=== PATIENT | male | born 1945 | race Caucasian/White ===

== ENCOUNTER 2020-10-07 17:00 | Emergency (ER) | payer MEDICARE, SELFPAY ==
[2020-10-07 17:32] VITALS: BP 179/81; BP 185/94; PULSE 129; PULSE 130; RESP 21; TEMP 38.5; O2SAT 94; O2SAT 95; BMI 29.0
--- NOTE | 2020-10-07 17:37 | ECG_ITS ---
Test Reason : SYNCOPE Blood Pressure : / mmHG Vent. Rate : 121 BPM Atrial Rate : 121 BPM P-R Int : 156 ms QRS Dur : 088 ms QT Int : 320 ms P-R-T Axes : 084 -10 064 degrees QTc Int : 454 ms Sinus tachycardia Inferior infarct , age undetermined Abnormal ECG No previous ECGs available Referred By: Yadira Soriano Electronically Signed By:ZAINAB QUINTANILLA
--- NOTE | 2020-10-07 17:37 | XR_ITS ---
EXAMINATION: XR CHEST CLINICAL INFORMATION: Cough. COMPARISON: None TECHNIQUE: Frontal view of the chest was obtained. FINDINGS: No significant abnormality is noted involving the heart, lungs, mediastinum, bony thorax or soft tissues. XR/XR chest 1V IMPRESSION: Unremarkable chest examination.
[2020-10-07 18:00] VITALS: BP 144/68; PULSE 108; RESP 18; TEMP 37.3
[2020-10-07] MEDS: Acetaminophen 325 MG TABLET 975 MG PO (18:15)
--- NOTE | 2020-10-07 18:15 | ED_ITS ---
HPI - General Adult General Chief complaint: General Medical Stated complaint: Weakness Time Seen by Provider: 10/07/20 17:35 Source: patient and EMS Mode of arrival: EMS Limitations: no limitations History of Present Illness HPI narrative: 75 y/o male with history of CAD s/p CABG in February 2020, PVD s/p RLE stent at [facility] last week who presents to the ED with acute onset of profuse diarrhea and fecal incontinence that started this afternoon. He states he was walking downstairs when he started to lose control of his bowels and felt instantly weak all over. When he got to the bottom of the stairs he collapsed into a chair and hit his left shoulder. He did not his head head or lose consciousness. He called EMS because he was too weak to get up. He was found covered in liquid stool. He reports he was recently around his son who was later found to be COVID positive. He denies nausea, vomiting, abdominal pain, fever, chills, SOB or chest pain. He admits to a chronic cough but it is unchanged from his baseline. MD complaint: diarrhea Onset (ago): hour(s) (1) Location: abdomen Radiation: non-radiation Severity: moderate Relieving factors: none Exacerbating factors: none Associated symptoms: fever/chills, malaise and weakness Treatments prior to arrival: none Related Data Allergies Allergy/AdvReac Type Severity Reaction Status Date / Time Unable to Assess Allergy Verified 10/07/20 17:37 Review of Systems Review of Systems: Constitutional: No Fever, No Chills ENT/Mouth: No sore throat, No Rhinorrhea, No Swallowing Difficulty Cardiovascular: No Chest Pain, No SOB, No Orthopnea, No Edema Respiratory: + Cough, No Sputum, No Wheezing, No dyspnea Gastrointestinal: No Nausea, No Vomiting, + Diarrhea, No abdominal Pain Genitourinary: No Dysuria, No Urinary Frequency, No Hematuria Musculoskeletal: No joint pain, No Myalgias Skin: No Skin Lesions, No rash Neuro: No Weakness, No Numbness, No Dizziness, + Headache Psych: No Anxiety/Panic, No Depression Heme/Lymph: + Bruising, No Lymphadenopathy Endocrine: No Polyuria, No Polydipsia PMFSH Past Medical History Attestation statement: The following information was validated with the patient. Medical History (Updated 10/07/20 @ 20:55 by HARITHA Soto) CAD (coronary artery disease) PVD (peripheral vascular disease) Surgical History (Updated 10/07/20 @ 18:21 by HARITHA Soto) S/P CABG (coronary artery bypass graft) Social History Social History Advance Directives: No Advance Directives Information Provided: Yes Physical Exam Vital Signs: Vital Signs: Last Vital Signs Temp 101.3 F H 10/07/20 17:32 Pulse 129 H 10/07/20 17:32 Resp 21 H 10/07/20 17:32 BP 179/81 H 10/07/20 17:32 Pulse Ox 94 10/07/20 17:32 Body Mass Index 29.0 Appearance: Alert. Oriented X3. No acute distress. Eyes: Pupils equal, round and reactive to light. ENT: Pharynx normal. Neck: Normal inspection. Neck supple. CVS: tachycardic. Pulses normal. well healed anterior chest wall scar consistent with CABG Respiratory: No respiratory distress. Breath sounds normal. Abdomen: Obese, soft and nontender. +BS x4 Skin: Skin warm and dry. Normal skin color. Normal skin turgor. No rashes. Extremities: No lower extremity edema. Right groin right moderate ecchymosis with bandaid over it Neuro: Oriented X 3. No motor deficit. No sensory deficit. Course Course Course Narrative: 75 y/o male presenting with acute onset of generalized we akness with diffuse diarrhea and fecal incontinence. Recent COVID exposure. Febrile and tachycardic on arrival. Septic workup initiated. Concern for viral etiology given COVID exposure. No recent abx, low suspicion for C diff. No abdominal pain at all. Will give Tylenol 1L IVF and panculture. He offers no respiratory complaints. Dispo pending results and improvement. Reevaluation(s) Reevaluation #1: Labs show normal WBC, mild elevation in transaminases, lymphocytes are down. Troponin 38, no chest pain. Likely due to demand with tachycaria on arrival. HR improving with IVF and Tylenol. No further diarrhea since arrival. Reevaluation #2: HR improved to 90's after 2L IVF and Tylenol. He feels much better. He is COVID-19 POSITIVE. SpO2 93-97%, speaking in full sentences with no SOB or cough. CXR normal. Results discussed with patient with plan to repeat troponin at 9PM and likely d/c home. Will need to do ambulatory pulse oximetry prior to d/c. Signed out to Francis Slaughter PA-C who will assume care. Medical Decision Making Lab Data Result diagrams: 10/07/20 18:11 10/07/20 18:11 Labs: Lab Results 10/07/20 10/07/20 10/07/20 Range/Units 18:10 18:10 18:11 WBC 6.9 (4.8-10.8) X10*3/uL RBC 4.83 (4.60-5.80) X10*6/uL Hgb 14.4 (14.0-18.0) g/dl Hct 44.6 (42-52) % MCV 92.3 (80-98) fL MCH 29.8 (27.0-33.0) pg MCHC 32.3 (31.0-36.0) g/dl RDW 14.1 (11.0-16.0) % Plt Count 218 (160-400) X10*3/uL MPV 9.9 (9.4-12.4) fL Immature Gran % (Auto) 0.3 (0.0-0.4) % Neut % (Auto) 70.5 (45-73) % Lymph % (Auto) 8.7 L (20-40) % [place] % (Auto) 19.0 H (2-11) % Eos % (Auto) 1.2 (0-4) % Baso % (Auto) 0.3 (0-2) % Lymph # (Auto) 0.6 L (1.2-4.9) X10*3/uL [place] # (Auto) 1.3 H (0.1-1.2) X10*3/uL Eos # (Auto) 0.1 (0.0-0.4) X10*3/uL Baso # (Auto) 0.0 (0.0-0.2) X10*3/uL Abs Immat Gran (auto) 0.02 (0.00-0.03) X10*3/uL Absolute Neuts (auto) 4.8 (2.0-8.3) X10*3/uL Absolute Nucleated RBC 0.000 (0.0-0.012) X10*3/uL Nucleated RBC % (auto) 0.0 (0.0-0.2) /100WBC Smear Tech's Comments VERIFIED PT 13.9 H (10.8-13.0) SEC INR 1.2 H (0.9-1.1) APTT 33.9 (24.1-38.0) SEC D-Dimer 673 NG/ML Hold Blue Top SEE NOTE Sodium (135-145) mmol/L Potassium (3.3-5.1) mmol/l Chloride (96-108) mmol/L Carbon Dioxide (22-29) mmol/L Anion Gap (12-20) BUN (9-16) mg/dL Creatinine (0.5-1.4) mg/dL Estim Creat Clear Calc Estimated GFR Random Glucose (60-115) mg/dL Lactic Acid (0.5-2.0) mmol/L Calcium (8.4-10.2) mg/dL Magnesium (1.6-2.6) mg/dL Total Bilirubin (0.0-1.0) mg/dL Direct Bilirubin (0.0-0.5) mg/dL AST (5-37) U/L ALT (0-40) U/L Alkaline Phosphatase (39-117) U/L Troponin I High Sens (<3.5-35.0) ng/L C-Reactive Protein (< or = 0.50) mg/dL B-Natriuretic Peptide (<100) pg/mL Total Protein (6.5-8.0) g/dL Albumin (3.5-5.0) g/dL Lipase (8-78) U/L Procalcitonin 0.15 ng/mL Urine Color Urine Appearance Urine pH (5.0-8.0) Ur Specific [place] (1.005-1.025) Urine Protein (NEG-TRACE) MG/DL Urine Glucose (UA) (NEG) MG/DL Urine Ketones (NEG) MG/DL Urine Blood (NEG) Urine Nitrite (NEG) Ur Leukocyte Esterase (NEG) Urine RBC (0) /HPF Urine WBC (0-4) /HPF Ur Squamous Epith Cells /LPF Talc Crystals /LPF Urine Bacteria /LPF Coronavirus (PCR) (Negative) Influenza Type A (PCR) (Negative) Influenza Type B (PCR) (Negative) RSV RNA Qual (PCR) (Negative) 10/07/20 10/07/2021 Range/Units 18:11 18:11 18:11 WBC (4.8-10.8) X10*3/uL RBC (4.60-5.80) X10*6/uL Hgb (14.0-18.0) g/dl Hct (42-52) % MCV (80-98) fL MCH (27.0-33.0) pg MCHC (31.0-36.0) g/dl RDW (11.0-16.0) % Plt Count (160-400) X10*3/uL MPV (9.4-12.4) fL Immature Gran % (Auto) (0.0-0.4) % Neut % (Auto) (45-73) % Lymph % (Auto) (20-40) % [place] % (Auto) (2-11) % Eos % (Auto) (0-4) % Baso % (Auto) (0-2) % Lymph # (Auto) (1.2-4.9) X10*3/uL [place] # (Auto) (0.1-1.2) X10*3/uL Eos # (Auto) (0.0-0.4) X10*3/uL Baso # (Auto) (0.0-0.2) X10*3/uL Abs Immat Gran (auto) (0.00-0.03) X10*3/uL Absolute Neuts (auto) (2.0-8.3) X10*3/uL Absolute Nucleated RBC (0.0-0.012) X10*3/uL Nucleated RBC % (auto) (0.0-0.2) /100WBC Smear Tech's Comments PT (10.8-13.0) SEC INR (0.9-1.1) APTT (24.1-38.0) SEC D-Dimer NG/ML Hold Blue Top Sodium 141 (135-145) mmol/L Potassium 4.5 (3.3-5.1) mmol/l Chloride 101 (96-108) mmol/L Carbon Dioxide 28 (22-29) mmol/L Anion Gap 17 (12-20) BUN 15 (9-16) mg/dL Creatinine 0.89 (0.5-1.4) mg/dL Estim Creat Clear Calc 82.8 Estimated GFR > 60 Random Glucose 109 (60-115) mg/dL Lactic Acid 1.1 (0.5-2.0) mmol/L Calcium 9.2 (8.4-10.2) mg/dL Magnesium 2.0 (1.6-2.6) mg/dL Total Bilirubin 0.3 (0.0-1.0) mg/dL Direct Bilirubin 0.3 (0.0-0.5) mg/dL AST 58 H (5-37) U/L ALT 52 H (0-40) U/L Alkaline Phosphatase 75 (39-117) U/L Troponin I High Sens 38.5 H (<3.5-35.0) ng/L C-Reactive Protein 3.10 H (< or = 0.50) mg/dL B-Natriuretic Peptide 70 (<100) pg/mL Total Protein 7.6 (6.5-8.0) g/dL Albumin 4.7 (3.5-5.0) g/dL Lipase 27 (8-78) U/L Procalcitonin ng/mL Urine Color Urine Appearance Urine pH (5.0-8.0) Ur Specific [place] (1.005-1.025) Urine Protein (NEG-TRACE) MG/DL Urine Glucose (UA) (NEG) MG/DL Urine Ketones (NEG) MG/DL Urine Blood (NEG) Urine Nitrite (NEG) Ur Leukocyte Esterase (NEG) Urine RBC (0) /HPF Urine WBC (0-4) /HPF Ur Squamous Epith Cells /LPF Talc Crystals /LPF Urine Bacteria /LPF Coronavirus (PCR) (Negative) Influenza Type A (PCR) (Negative) Influenza Type B (PCR) (Negative) RSV RNA Qual (PCR) (Negative) 10/07/20 10/07/20 Range/Units 18:13 19:15 WBC (4.8-10.8) X10*3/uL RBC (4.60-5.80) X10*6/uL Hgb (14.0-18.0) g/dl Hct (42-52) % MCV (80-98) fL MCH (27.0-33.0) pg MCHC (31.0-36.0) g/dl RDW (11.0-16.0) % Plt Count (160-400) X10*3/uL MPV (9.4-12.4) fL Immature Gran % (Auto) (0.0-0.4) % Neut % (Auto) (45-73) % Lymph % (Auto) (20-40) % [place] % (Auto) (2-11) % Eos % (Auto) (0-4) % Baso % (Auto) (0-2) % Lymph # (Auto) (1.2-4.9) X10*3/uL [place] # (Auto) (0.1-1.2) X10*3/uL Eos # (Auto) (0.0-0.4) X10*3/uL Baso # (Auto) (0.0-0.2) X10*3/uL Abs Immat Gran (auto) (0.00-0.03) X10*3/uL Absolute Neuts (auto) (2.0-8.3) X10*3/uL Absolute Nucleated RBC (0.0-0.012) X10*3/uL Nucleated RBC % (auto) (0.0-0.2) /100WBC Smear Tech's Comments PT (10.8-13.0) SEC INR (0.9-1.1) APTT (24.1-38.0) SEC D-Dimer NG/ML Hold Blue Top Sodium (135-145) mmol/L Potassium (3.3-5.1) mmol/l Chloride (96-108) mmol/L Carbon Dioxide (22-29) mmol/L Anion Gap (12-20) BUN (9-16) mg/dL Creatinine (0.5-1.4) mg/dL Estim Creat Clear Calc Estimated GFR Random Glucose (60-115) mg/dL Lactic Acid (0.5-2.0) mmol/L Calcium (8.4-10.2) mg/dL Magnesium (1.6-2.6) mg/dL Total Bilirubin (0.0-1.0) mg/dL Direct Bilirubin (0.0-0.5) mg/dL AST (5-37) U/L ALT (0-40) U/L Alkaline Phosphatase (39-117) U/L Troponin I High Sens (<3.5-35.0) ng/L C-Reactive Protein (< or = 0.50) mg/dL B-Natriuretic Peptide (<100) pg/mL Total Protein (6.5-8.0) g/dL Albumin (3.5-5.0) g/dL Lipase (8-78) U/L Procalcitonin ng/mL Urine Color YELLOW Urine Appearance CLEAR Urine pH 6.5 (5.0-8.0) Ur Specific [place] 1.020 (1.005-1.025) Urine Protein TRACE (NEG-TRACE) MG/DL Urine Glucose (UA) NEG (NEG) MG/DL Urine Ketones NEG (NEG) MG/DL Urine Blood TRACE (NEG) Urine Nitrite NEG (NEG) Ur Leukocyte Esterase NEG (NEG) Urine RBC 0-2 (0) /HPF Urine WBC 0-2 (0-4) /HPF Ur Squamous Epith Cells 1+ /LPF Talc Crystals 3+ /LPF Urine Bacteria TRACE /LPF Coronavirus (PCR) POSITIVE A (Negative) Influenza Type A (PCR) NEGATIVE (Negative) Influenza Type B (PCR) NEGATIVE (Negative) RSV RNA Qual (PCR) NEGATIVE (Negative) ECG Data Attestation: I personally reviewed and interpreted this ECG as follows: Interpretation: sinus tachycardia, HR 121, normal ME interval, normal QTc, no ST segment elevations Discharge Plan Discharge Clinical Impression: COVID-19 Instructions: Acute Diarrhea (ED), COVID-19 (Coronavirus Disease 2019) (ED) Additional Instructions: You were found to be COVID-19 POSITIVE today. Your chest x-ray was normal. You were given IV fluids with improvement in your vital signs. Continue to drink plenty of fluids and stay hydrated at home. Take Imodium as needed for loose stools or diarrhea. Take over the counter cold/flu medications as needed for other symptoms. Follow up with your doctor this week. If you develop shortness of breath, difficultly breathing, chest pain or recurrent severe diarrhea call 911 or come back to the ER for further evaluation.
[2020-10-07] MEDS: 0.9 % Sodium Chloride 1,000 ML 999 ML IVCONT ×2 (18:16→21:21)
[2020-10-07 18:37] LABS: Basophils Percent Auto 0.3 % (0-2); Eosinophils Absolute Auto 0.1 X10*3/uL (0.0-0.4); Eosinophils Percent Auto 1.2 % (0-4); Hematocrit 44.6 % (42-52); Hemoglobin 14.4 g/dl (14.0-18.0); Imm Gran Abs Auto 0.02 X10*3/uL (0.00-0.03); Imm Gran Pct Auto 0.3 % (0.0-0.4); Lymphocytes Absolute Auto 0.6 X10*3/uL (1.2-4.9); Lymphocytes Percent Auto 8.7 % (20-40); MANUAL DIFF FLAG SCAN; Mean Corpuscular HGB Conc 32.3 g/dl (31.0-36.0); Mean Corpuscular Hemoglobin 29.8 pg (27.0-33.0); Mean Corpuscular Volume 92.3 fL (80-98); Mean Platelet Volume 9.9 fL (9.4-12.4); Monocytes Absolute Auto 1.3 X10*3/uL (0.1-1.2); Neutrophils Absolute Auto 4.8 X10*3/uL (2.0-8.3); Neutrophils Percent Auto 70.5 % (45-73); Platelet Count 218 X10*3/uL (160-400); Red Blood Count 4.83 X10*6/uL (4.60-5.80); Red Cell Distribution Width 14.1 % (11.0-16.0); SCAN SMEAR FLAG 1; White Blood Count 6.9 X10*3/uL (4.8-10.8)
[2020-10-07 18:39] LABS: INTERNATIONAL NORM RATIO 1.2 (0.9-1.1); Prothrombin Time 13.9 SEC (10.8-13.0)
[2020-10-07 18:42] LABS: D Dimer 673 NG/ML; Partial Thromboplastin Time 33.9 SEC (24.1-38.0)
[2020-10-07 18:55] LABS: SLIDE REVIEW VERIFIED
[2020-10-07 18:56] LABS: Lactic Acid 1.1 mmol/L (0.5-2.0)
[2020-10-07 19:00] LABS: Alanine Aminotransferase 52 U/L (0-40); Albumin Level 4.7 g/dL (3.5-5.0); Alkaline Phosphatase 75 U/L (39-117); Anion Gap 17 (12-20); Aspartate Amino Transferase 58 U/L (5-37); Bilirubin Direct 0.3 mg/dL (0.0-0.5); Bilirubin Total 0.3 mg/dL (0.0-1.0); Blood Urea Nitrogen 15 mg/dL (9-16); Calcium 9.2 mg/dL (8.4-10.2); Carbon Dioxide 28 mmol/L (22-29); Chloride 101 mmol/L (96-108); Creatinine Clr Calc Pharmacy 82.8; Estimated Glomerular Filt Rate > 60; Glucose Random 109 mg/dL (60-115); Lipase 27 U/L (8-78); Potassium 4.5 mmol/l (3.3-5.1); Sodium 141 mmol/L (135-145); Total Protein 7.6 g/dL (6.5-8.0)
[2020-10-07 19:08] LABS: B Type Natriuretic Peptide 70 pg/mL (<100); Troponin-I High Sensitivity 38.5 ng/L (<3.5-35.0)
[2020-10-07 19:19] LABS: Glucose Urine UA NEG (NEG); Leukocyte Esterase Urine NEG (NEG); Nitrite Urine NEG (NEG); PH 6.5 (5.0-8.0); Urine Blood TRACE (NEG); Urine Ketones NEG (NEG); Urine Protein TRACE MG/DL (NEG-TRACE)
[2020-10-07 19:21] LABS: Appearance Urine CLEAR; Color Urine YELLOW
[2020-10-07 19:31] LABS: Bacteria Urine TRACE /LPF; RBC Urine 0-2 /HPF (0); Squamous Epithelial Cell Urine 1+ /LPF; Urine Talc Crystals 3+ /LPF; WBC Urine 0-2 /HPF (0-4)
[2020-10-07 19:35] LABS: Procalcitonin 0.15 ng/mL
[2020-10-07 19:35] LABS: Influenza A PCR NEGATIVE (Negative); Influenza B PCR NEGATIVE (Negative); Resp Syncy Virus RNA Qual PCR NEGATIVE (Negative); SARS COV2 PCR INHOUSE POSITIVE (Negative)
[2020-10-07 20:00] VITALS: BP 146/76; PULSE 106; RESP 20; TEMP 37.3; O2SAT 94
[2020-10-07 21:23] VITALS: BP 142/82; PULSE 107; RESP 18; TEMP 36.7; O2SAT 95
--- NOTE | 2020-10-07 21:25 | PC.NURSE ---
patient a&ox3, medicated per order, screw machine tender nsr to sinus tach 90s-100, vitals stable, patient ambulated with steady gait to bathroom, pt currently watching tv, will continue to monitor.
--- NOTE | 2020-10-07 22:11 | CT_ITS ---
EXAMINATION: CT ANGIOGRAM OF THE CHEST WITH AND WITHOUT CONTRAST (CT PULMONARY ANGIOGRAM FOR PE) CLINICAL INFORMATION: Reason for Exam Elevated D-Dimer. PE? COMPARISON: None TECHNIQUE: Prior to contrast administration, noncontrast localization images were obtained. Subsequently, multidetector volumetric imaging was performed from the thoracic inlet to below the diaphragms following the administration of 80 mL Omnipaque 350 intravenous contrast. No contrast reaction reported Sagittal, coronal, and MIP oblique sagittal reformatted images were obtained on the CT workstation, uploaded to PACS, and reviewed. This CT examination was performed using dose optimization techniques as appropriate, variously including the following: *Automated exposure control *Adjustment of mA and/or kV according to patient size (this includes techniques or standardized protocols for targeted exams where dose is matched to indication/reason for exam; i.e. extremities or head) *Use of iterative reconstruction technique Total exam dose-length product 451 mGy-cm FINDINGS: QUALITY OF STUDY/CONTRAST BOLUS: Satisfactory. PULMONARY ARTERIES: No central or segmental pulmonary emboli. THORACIC AORTA: No aneurysm or dissection. There are vascular wall calcifications of thoracic aorta. LUNG: No acute airspace opacity. No suspicious lung nodule. PLEURA: No pleural effusion or pneumothorax. MEDIASTINUM: Normal heart size. No pericardial effusion. No hilar or mediastinal lymphadenopathy. No evidence of septal bowing or right heart strain. CHEST WALL/AXILLA: No axillary or internal mammary lymphadenopathy. OSSEOUS STRUCTURES: No acute or suspicious osseous abnormality. Status post median sternotomy. UPPER ABDOMEN: Unremarkable. No reflux of contrast into the hepatic veins to suggest elevated right heart pressures. CT/CT angio chest PE protocol IMPRESSION: No acute abnormality of chest. No evidence of pulmonary embolism. VTE: negative
[2020-10-07] MEDS: iohexoL 350 MG/ML 100 ML INFUS..BTL IV (22:48)
[2020-10-07] MEDS: Ketorolac Tromethamine 30 MG/ML VIAL IVPUSH (22:49)
--- NOTE | 2020-10-07 22:51 | PC.NURSE ---
pt returned from ct scan with c/o chest pain, patient medicated per order, vitals obtained, desk monitor sinus tach, will notify provider of vitals, lab drawn per order and continue to monitor.
[2020-10-07 22:52] VITALS: BP 199/79; PULSE 114; RESP 20; O2SAT 94
[2020-10-07 23:41] VITALS: BP 162/78; PULSE 95; RESP 14; O2SAT 95
--- NOTE | 2020-10-07 23:42 | PC.NURSE ---
AMBULATED PATIENT IN ROOM, ROOM AIR SAT 95% DROPPED TO 92-93% WITH AMBULATION NO DYSPNEA ON EXERTION.
== END 2020-10-08 01:09 | disposition home or self-care (01) ==
PROVIDERS: Physician Assistant; Emergency Provider Emergency Medicine
DX: U07.1 COVID-19 (principal); R15.9 Full incontinence of feces; R53.1 Weakness
CPT/HCPCS: 0241U; 36415; 71045; 71275; 80048; 80076; 81001; 83605; 83690; 83735; 83880; 84145; 84484; 85025; 85379; 85610; 85730; 86140; 87040; 93005; 96361; 96374; 99284; J1885; Q9967

== ENCOUNTER → 2021-08-29 09:16 | Outpatient (BNVA) | payer MEDICARE, SELFPAY | PROVIDERS: Visit Provider Anesthesiology | DX: M19.012 Primary osteoarthritis, left shoulder (principal); M19.011 Primary osteoarthritis, right shoulder; M17.12 Unilateral primary osteoarthritis, left knee; M17.11 Unilateral primary osteoarthritis, right knee; M47.819 Spondylosis without myelopathy or radiculopathy, site unspecified; M51.36 Other intervertebral disc degeneration, lumbar region; G89.4 Chronic pain syndrome | CPT/HCPCS: 99202 ==

== ENCOUNTER 2024-03-03 14:23 | Outpatient (AMB) | payer MEDICARE, SELFPAY ==
--- NOTE | 2024-03-03 14:25 | AM.OFFWIN_ITS ---
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 Started 2 weeks ago, Has been using wax softener with intermittent relief Patient Tobacco Use Status: Former Tobacco user Allergies No Known Allergies Allergy (Verified 03/03/24 14:30) Do you need a note to return to daycare/school/sports/work: No HPI HPI Comments History of Present Illness Details 78 y/o male patient who presents to walk in clinic with c/o right ear blockage. Pt reports feeling like something is stuck inside his right ear for few day now. He has been using OTC Debrox with some relief. 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 PVD (peripheral vascular disease) CAD (coronary artery disease) Surgical History (Updated 10/07/20 @ 18:21 by HARITHA Soto) S/P CABG (coronary artery bypass graft) Social History Patient Tobacco Use Status: Former Tobacco user Review of Systems Const All systems reviewed & are unremarkable except as noted in HPI and below Physical Exam Vital Signs: Last Vital Signs Temp 97.7 F 03/03/24 14:26 Pulse 83 03/03/24 14:26 BP 126/74 03/03/24 14:26 Pulse Ox 96 03/03/24 14:26 Oxygen Delivery Method Room Air 03/03/24 14:26 BMI result Body Mass Index 31.5 Const General: comfortable and no acute distress Nutritional Appearance: obese Orientation/consciousness: patient oriented x3 HEENT Head: Yes normocephalic Ears: external ears normal and TM abnormal with fluid behind the TM on the left and obstructed by cerumen on the right General nose exam: Normal nasal mucous membranes and turbinates present Mouth: moist mucous membranes Neuro General: patient oriented x3, gait normal and moves all extremities Psych Speech and movement: Normal speech and movement present Office Procedures Cerumen Removal From which ear canal was the cerumen removed: right Removal: irrigation Notes: patient tolerated procedure well [id number] Irrigation/Lavage Assessment & Plan Assessment & Plan (1) Impacted cerumen of right ear: Code(s): H61.21 - Impacted cerumen, right ear Plan: - Ordered In Office Ear lavage/Irrigation. - Pt tolerated Procedure some how. - Unable to clear all the wax after Irrigation, Pt became uncomfortable. - Pt to continue using Debrox for 7 days. Medications: New carbamide peroxide 6.5% (Debrox) 5 drps otic (ears) BID 7 days 15 mL 0RF H61.21 - Impacted cerumen, right ear Coding Level of Care Code Est Pt Level 4 (22509) Diagnoses Impacted cerumen of right ear H61.21 CPT Codes Office Procedure - CPT: 22025-Dzg Irrigation/Lavage ([id number]) Time Spent (min) 20
[2024-03-03 14:26] VITALS: BP 126/74; PULSE 83; TEMP 36.5; O2SAT 96; BMI 31.5
== END 2024-03-03 15:32 | disposition home or self-care (01) ==
PROVIDERS: PCP Internal Medicine; Visit Provider Nurse Practitioner Family
DX: H61.21 Impacted cerumen, right ear (principal)
CPT/HCPCS: 69209; 99214

== ENCOUNTER 2024-03-21 11:13 | Outpatient (AMB) | payer MEDICARE, SELFPAY ==
[2024-03-21 12:25] VITALS: BP 122/70; PULSE 92; TEMP 36.7; O2SAT 98
--- NOTE | 2024-03-21 12:25 | MHC.OFFWIV ---
Intake Vital Signs 03/21/24 12:25 Height 5 ft 11 in BP 122/70 Blood Pressure Location Rt brachial Position Sitting Pulse 92 Pulse Source Pulse Oximeter Temp 98.0 F Temp Source Oral Pulse Oximetry (%) 98 Intake Visit Reasons: EP cut on top of head wont heal Intake Note: pt is here for cut on top of head that wont heal Patient Tobacco Use Status: Former Tobacco user Allergies No Known Allergies Allergy (Verified 03/21/24 12:25) Do you need a note to return to daycare/school/sports/work: No HPI EP cut on top of head wont heal HPI Details Patient presents with small scrapes on his superior scalp that he states wound heal. 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 He does not recall what this medication was, he does note it was a prescription. Upon further questioning he remembers his door to door selling distributor telling him they were clogged hair follicles and that is what the treatment was for. The lesions he presents with today are more small scrapes/abrasions. Currently not bleeding, he denies that these being pimple like lesions he picked at. Patient is on blood thinners. He denies any other concerns. 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 PVD (peripheral vascular disease) CAD (coronary artery disease) Surgical History (Updated 10/07/20 @ 18:21 by HARITHA Soto) S/P CABG (coronary artery bypass graft) Social History Patient Tobacco Use Status: Former Tobacco user Review of Systems Const Reports as per HPI and Reports no additional complaints Musc Reports no additional complaints and Reports as per HPI Skin/Breast Denies lesions Physical Exam Vital Signs: Last Vital Signs Temp 98.0 F 03/21/24 12:25 Pulse 92 03/21/24 12:25 BP 122/70 03/21/24 12:25 Pulse Ox 98 03/21/24 12:25 Const General: cooperative, comfortable and no acute distress Orientation/consciousness: patient oriented x3 Skin Other: Abrasions as noted. Covered with dried blood which I cleaned with saline to attempt to look at underlying wound bed. No skin lesions or bleeding at this time no signs or symptoms of infection. Rashes: no rashes Wounds: wounds noted (Three small 3-5 mm abrasions noted on anterior superior scalp.) Hair: general thinning Neuro General: patient oriented x3 Assessment & Plan Assessment & Plan (1) Abrasion, scalp w/o infection: Code(s): S00.01XA - Abrasion of scalp, initial encounter Plan: Advised patient he was likely being treated with a topical antibiotic in the past for clogged hair follicles. This would not be appropriate for these type of lesions. He can try an OTC type burn gel which would provide help with wound healing as well as protection of the wound. Avoid picking or a breathing lesions when they occur he should apply pressure they may be more than normal due to his blood thinner use. He can apply small bandages as needed. Return to clinic with any concerns. Medications: New hyaluronic [id number] (RadiaPlexRx topical gel) apply to small wounds twice a day as needed. 1 appl topical BID PRN 14 grams 0RF wound healing Coding Level of Care Code Est Pt Level 3 (26960) Diagnoses Abrasion, scalp w/o infection S00.01XA
== END 2024-03-21 13:26 | disposition home or self-care (01) ==
PROVIDERS: PCP Internal Medicine; Visit Provider Physician Assistant
DX: S00.01XA Abrasion of scalp, initial encounter (principal)
CPT/HCPCS: 99213